=== PATIENT | male | born 1955 | race Caucasian/White ===

== ENCOUNTER 2017-08-21 13:34 | Emergency (ER) | payer BC, OTHER ==
[~2017-08-21] VITALS: Ht 172.7 cm; Wt 73.0 kg
[~2017-08-21 13:34] MED LIST: LISINOPRIL
[2017-08-21 17:23] VITALS: BP 146/92
== END 2017-08-21 17:36 | disposition home or self-care (01) ==
LOC: ER 16:10
DX: G89.29 Other chronic pain (principal); M54.5 Low back pain; I10 Essential (primary) hypertension; E78.00 Pure hypercholesterolemia, unspecified
CPT/HCPCS: 99283

== ENCOUNTER 2018-07-15 14:41 | Emergency (ER) | payer BC ==
[~2018-07-15] VITALS: Ht 165.1 cm; Wt 81.0 kg
[2018-07-15] MEDS ORDERED: IBUPROFEN 600MG TABLET PO ONE (17:15)
[2018-07-15 18:09] VITALS: BP 158/102
== END 2018-07-15 18:11 | disposition home or self-care (01) ==
LOC: ER 14:41
DX: H60.91 Unspecified otitis externa, right ear (principal); E78.00 Pure hypercholesterolemia, unspecified; I10 Essential (primary) hypertension; Z90.49 Acquired absence of other specified parts of digestive tract
CPT/HCPCS: 99283

== ENCOUNTER 2019-05-11 13:13 | Inpatient (IN) | payer SELFPAY ==
[~2019-05-11] VITALS: Ht 172.7 cm; Wt 62.6 kg
[2019-05-11 14:26] LABS: BASOPHILS % 0.5 % (0.0-2.0); EOSINOPHILS % 0.4 % (0.0-5.0); HEMATOCRIT. 43.7 % (42.0-52.0); HEMOGLOBIN. 15.3 g/dL (14.0-18.0); LYMPHOCYTES % 20.9 % (20.0-50.0); MEAN CORPUSCULAR HEMOGLOBIN 34.8 pg (28.0-32.0); MEAN CORPUSCULAR VOLUME 99.7 fL (80.0-94.0); MEAN PLATELET VOLUME 7.5 fl (7.4-10.4); MONOCYTES % 6.9 % (2.0-8.0); NEUTROPHILS % 71.3 % (40.0-76.0); PLATELET 263 x1000/uL (130-400); RED BLOOD CELL COUNT 4.39 mill/uL (4.7-6.1); RED CELL DISTRIBUTION WIDTH 14.2 % (11.6-14.6)
[2019-05-11 14:33] LABS: CHLORIDE 107 mEq/L (98-107)
[2019-05-11] MEDS ORDERED: ONDANSETRON HCL 4MG/2ML INJ IV ONE (15:15)
[2019-05-11] MEDS ORDERED: MORPHINE SULFATE 4 MG/ML CPJ (NOT FOR IM USE) IV ONE (15:15)
[2019-05-11] MEDS ORDERED: ONDANSETRON HCL 4MG/2ML INJ IV PRN (18:45)
[2019-05-11] MEDS ORDERED: CLONIDINE 0.1MG TABLET PO PRN (18:45)
[2019-05-11] MEDS ORDERED: ACETAMINOPHEN 325MG TABLET PO PRN (18:45)
[2019-05-11] MEDS ORDERED: IOHEXOL-350 100 ML BOTTLE ONE (19:44)
[2019-05-11] MEDS ORDERED: ASPIRIN 81MG TABLET PO NR (21:15)
[2019-05-11] MEDS: HYDROCODONE/ACETAMINOPHEN 5/325MG TABLET PO PRN (21:17)
[2019-05-11 21:33] VITALS: BP 185/115
[2019-05-11] MEDS: METOPROLOL TARTRATE 25MG TABLET PO SCH (21:57)
[2019-05-11 22:00] VITALS: BP 185/115
[2019-05-11] MEDS: ZOLPIDEM TARTRATE 5MG TABLET PO PRN (23:20)
[2019-05-12] VITALS: BP 122/82
[2019-05-12] MEDS ORDERED: MORPHINE SULFATE 2 MG/ML CPJ (NOT FOR IM USE) IV PRN (01:00)
[2019-05-12 04:00] VITALS: BP 131/86
[2019-05-12 07:32] VITALS: BP 135/89
[2019-05-12 07:56] LABS: CHLORIDE 105 mEq/L (98-107)
[2019-05-12 07:58] LABS: BASOPHILS % 0.1 % (0.0-2.0); HEMATOCRIT. 43.4 % (42.0-52.0); HEMOGLOBIN. 15.1 g/dL (14.0-18.0); LYMPHOCYTES % 27.9 % (20.0-50.0); MEAN CORPUSCULAR HEMOGLOBIN 34.6 pg (28.0-32.0); MEAN CORPUSCULAR VOLUME 99.7 fL (80.0-94.0); MEAN PLATELET VOLUME 7.7 fl (7.4-10.4); MONOCYTES % 10.4 % (2.0-8.0); NEUTROPHILS % 60.6 % (40.0-76.0); PLATELET 250 x1000/uL (130-400); RED BLOOD CELL COUNT 4.36 mill/uL (4.7-6.1); RED CELL DISTRIBUTION WIDTH 14.5 % (11.6-14.6)
[2019-05-12] MEDS: METOPROLOL TARTRATE 25MG TABLET PO SCH ×2 (08:39→20:44)
[2019-05-12] MEDS: HYDROCODONE/ACETAMINOPHEN 5/325MG TABLET PO PRN ×2 (08:39→14:56)
[2019-05-12] MEDS: ASPIRIN 81MG TABLET PO SCH (08:39)
[2019-05-12 11:48] VITALS: BP 122/80
[2019-05-12] MEDS: MORPHINE SULFATE 2 MG/ML CPJ (NOT FOR IM USE) IV PRN ×3 (11:48→20:44)
[2019-05-12] MEDS: CELECOXIB 200MG CAPSULE PO SCH (16:45)
[2019-05-12 20:00] VITALS: BP 138/85
[2019-05-12] MEDS: FISH OIL/OMEGA-3 FATTY ACIDS 1000MG CAPSULE PO SCH (20:44)
[2019-05-12] MEDS ORDERED: ATORVASTATIN CALCIUM 40MG TABLET PO SCH (21:00)
[2019-05-12] MEDS: ZOLPIDEM TARTRATE 5MG TABLET PO PRN (21:50)
[2019-05-13] VITALS: BP 137/80
[2019-05-13] MEDS: MORPHINE SULFATE 2 MG/ML CPJ (NOT FOR IM USE) IV PRN ×2 (02:40→06:39)
[2019-05-13 04:00] VITALS: BP 124/76
[2019-05-13 08:00] VITALS: BP 143/94
[2019-05-13] MEDS: METOPROLOL TARTRATE 25MG TABLET PO SCH (08:22)
[2019-05-13] MEDS: FISH OIL/OMEGA-3 FATTY ACIDS 1000MG CAPSULE PO SCH (08:22)
[2019-05-13] MEDS: CELECOXIB 200MG CAPSULE PO SCH (08:22)
[2019-05-13] MEDS: ASPIRIN 81MG TABLET PO SCH (08:23)
[2019-05-13] MEDS ORDERED: OMEP20CA5 MT (08:43)
[2019-05-13] MEDS ORDERED: LISI-604 MT (08:43)
[2019-05-13 11:25] VITALS: BP 143/94
== END 2019-05-13 15:15 | disposition home or self-care (01) | DRG 203 ==
LOC: ER 13:13 → EDBEDREQ 14:50 → 7WST 17:04 → EDBEDREQ 17:07 → EDBEDREQTM 19:52 → ENRESERV 20:19
PROVIDERS: ADMIT Internal Medicine; ATTEND Internal Medicine
DX: M94.0 Chondrocostal junction syndrome [Tietze] (principal); E78.5 Hyperlipidemia, unspecified; G47.00 Insomnia, unspecified; I10 Essential (primary) hypertension; Z82.49 Family history of ischemic heart disease and other diseases of the circulatory system; Z79.899 Other long term (current) drug therapy
CPT/HCPCS: 36415; 71045; 71275; 80048; 80061; 83880; 84443; 84484; 93005; 93306; 96374; 96375; 99285; J2270; J2405; Q9967

== ENCOUNTER 2019-07-31 07:54 | Emergency (ER) | payer SELFPAY ==
[~2019-07-31] VITALS: Ht 165.1 cm; Wt 70.0 kg
[~2019-07-31 07:54] MED LIST changes: -LISINOPRIL; +OMEP20CA5 MT
[2019-07-31] MEDS ORDERED: ONDANSETRON HCL 4MG/2ML INJ IV STA (08:20)
[2019-07-31] MEDS ORDERED: MORPHINE SULFATE 4 MG/ML CPJ (NOT FOR IM USE) IV STA (08:20)
[2019-07-31] MEDS ORDERED: SODIUM CHLORIDE 0.9% 1,000 ML IV ONE (08:20)
[2019-07-31 08:56] LABS: CHLORIDE 110 mEq/L (98-107)
[2019-07-31 08:58] LABS: BASOPHILS % 0.4 % (0.0-2.0); EOSINOPHILS % 3.1 % (0.0-5.0); HEMATOCRIT. 44.4 % (42.0-52.0); HEMOGLOBIN. 15.6 g/dL (14.0-18.0); LYMPHOCYTES % 37.1 % (20.0-50.0); MEAN CORPUSCULAR HEMOGLOBIN 34.2 pg (28.0-32.0); MEAN CORPUSCULAR VOLUME 96.8 fL (80.0-94.0); MEAN PLATELET VOLUME 8.2 fl (7.4-10.4); MONOCYTES % 8.3 % (2.0-8.0); NEUTROPHILS % 51.1 % (40.0-76.0); PLATELET 265 x1000/uL (130-400); RED BLOOD CELL COUNT 4.58 mill/uL (4.7-6.1); RED CELL DISTRIBUTION WIDTH 12.9 % (11.6-14.6)
[2019-07-31 08:59] LABS: PROTHROMBIN TIME 10.6 sec (9.6-11.0)
[2019-07-31 09:03] LABS: CLARITY URINE CLEAR (CLEAR); COLOR URINE DARK YELLOW (YELLOW); KETONES URINE TRACE (NEGATIVE); LEUKOCYTE ESTERASE URINE TRACE (NEGATIVE); NITRITE URINE NEGATIVE (NEGATIVE); OCCULT BLOOD URINE NEGATIVE (NEGATIVE); PH URINE 6.5 (4.5-8.0); PROTEIN URINE NEGATIVE (NEGATIVE); SPECIFIC GRAVITY URINE 1.024 (1.005-1.030)
[2019-07-31] MEDS ORDERED: ONDANSETRON HCL 4MG/2ML INJ IV ONE (10:00)
[2019-07-31 11:04] VITALS: BP 148/90
== END 2019-07-31 11:07 | disposition home or self-care (01) ==
LOC: ER 07:54 → CANBEDREQ 14:30
DX: R10.13 Epigastric pain (principal); R11.0 Nausea; R19.7 Diarrhea, unspecified; R50.9 Fever, unspecified; I10 Essential (primary) hypertension
CPT/HCPCS: 36415; 80053; 81003; 83690; 85025; 85610; 96361; 96374; 96375; 96376; 99283; J2270; J2405; J7030

== ENCOUNTER 2019-11-17 07:27 | Emergency (ER) | payer MEDICAID ==
[~2019-11-17] VITALS: Ht 175.3 cm; Wt 71.0 kg
[2019-11-17] MEDS ORDERED: ONDANSETRON HCL 4MG/2ML INJ IV STA (07:57)
[2019-11-17] MEDS ORDERED: SODIUM CHLORIDE 0.9% 1,000 ML IV ONE (07:57)
[2019-11-17] MEDS ORDERED: KETOROLAC 30MG/ML VIAL IV STA (07:57)
[2019-11-17 08:41] LABS: BASOPHILS % 0.3 % (0.0-2.0); EOSINOPHILS % 2.1 % (0.0-5.0); HEMATOCRIT. 46.6 % (42.0-52.0); HEMOGLOBIN. 15.6 g/dL (14.0-18.0); LYMPHOCYTES % 25.9 % (20.0-50.0); MEAN CORPUSCULAR HEMOGLOBIN 33.6 pg (28.0-32.0); MEAN CORPUSCULAR VOLUME 100.5 fL (80.0-94.0); MEAN PLATELET VOLUME 7.9 fl (7.4-10.4); MONOCYTES % 9.1 % (2.0-8.0); NEUTROPHILS % 62.6 % (40.0-76.0); PLATELET 287 x1000/uL (130-400); RED BLOOD CELL COUNT 4.63 mill/uL (4.7-6.1); RED CELL DISTRIBUTION WIDTH 14.6 % (11.6-14.6)
[2019-11-17 08:50] LABS: CHLORIDE 103 mEq/L (98-107)
[2019-11-17 10:54] LABS: CLARITY URINE CLEAR (CLEAR); COLOR URINE YELLOW (YELLOW); KETONES URINE NEGATIVE (NEGATIVE); LEUKOCYTE ESTERASE URINE NEGATIVE (NEGATIVE); NITRITE URINE NEGATIVE (NEGATIVE); OCCULT BLOOD URINE NEGATIVE (NEGATIVE); PH URINE 6.5 (4.5-8.0); PROTEIN URINE NEGATIVE (NEGATIVE); SPECIFIC GRAVITY URINE 1.012 (1.005-1.030); UROBILINOGEN URINE 0.2 E.U./dL (0.2-1.0)
[2019-11-17] MEDS ORDERED: ACETAMINOPHEN WITH CODEINE 300/30MG TABLET PO ONE (12:00)
[2019-11-17 12:11] VITALS: BP 168/95
== END 2019-11-17 11:30 | disposition home or self-care (01) ==
LOC: ER 07:27
DX: G43.909 Migraine, unspecified, not intractable, without status migrainosus (principal); I16.0 Hypertensive urgency; I10 Essential (primary) hypertension; E78.00 Pure hypercholesterolemia, unspecified
CPT/HCPCS: 36415; 70450; 80053; 81003; 85025; 93005; 96374; 96375; 99284; J1885; J2405; J7030

== ENCOUNTER 2022-12-12 10:08 | Inpatient (IN) | payer MEDICARE, MEDICAID ==
[~2022-12-12] VITALS: Ht 165.1 cm; Wt 73.7 kg
[~2022-12-12 10:08] MED LIST changes: +OMEP20CA14 MT; -OMEP20CA5 MT
[2022-12-12] MEDS ORDERED: NITROGLYCERIN OINT 1GM/INCH UDPKT TD ONE (10:30)
[2022-12-12] MEDS ORDERED: HYDRALAZINE 20MG/ML VIAL IV ONE (10:30)
[2022-12-12] MEDS ORDERED: MORPHINE SULFATE 4 MG/ML CPJ (NOT FOR IM USE) IV ONE (10:30)
[2022-12-12] MEDS ORDERED: ATROPINE SULFATE 1MG/ML VIAL IV ONE (11:00)
[2022-12-12 11:19] LABS: BASOPHILS % 0.2 % (0.0-2.0); EOSINOPHILS % 1.2 % (0.0-5.0); HEMATOCRIT. 45.2 % (42.0-52.0); HEMOGLOBIN. 15.5 g/dL (14.0-18.0); LYMPHOCYTES % 28.8 % (20.0-50.0); MEAN CORPUSCULAR HEMOGLOBIN 32.6 pg (28.0-32.0); MEAN CORPUSCULAR VOLUME 95.3 fL (80.0-94.0); MEAN PLATELET VOLUME 7.8 fl (7.4-10.4); MONOCYTES % 8.5 % (2.0-8.0); NEUTROPHILS % 61.3 % (40.0-76.0); PLATELET 226 x1000/uL (130-400); RED BLOOD CELL COUNT 4.74 mill/uL (4.7-6.1); RED CELL DISTRIBUTION WIDTH 14.9 % (11.6-14.6)
[2022-12-12 11:28] LABS: CHLORIDE 104 mEq/L (98-107)
[2022-12-12] MEDS ORDERED: IOHEXOL-350 100 ML BOTTLE ONE ×2 (12:18→12:20)
[2022-12-12] MEDS ORDERED: MORPHINE SULFATE 4 MG/ML CPJ (NOT FOR IM USE) IV SCH (12:30)
[2022-12-12] MEDS: NITROGLYCERIN 0.4MG TABLET SL SL PRN ×2 (17:10→18:49)
[2022-12-12 18:00] VITALS: BP 166/88
[2022-12-12 18:20] VITALS: BP 166/88
[2022-12-12 20:00] VITALS: BP 140/76
[2022-12-12] MEDS: MORPHINE SULFATE 2 MG/ML CPJ (NOT FOR IM USE) IV PRN (22:11)
[2022-12-12] MEDS ORDERED: ZOLPIDEM TARTRATE 5MG TABLET PO PRN (22:15)
[2022-12-12] MEDS ORDERED: NALOXONE HCL 0.4MG/ML VIAL IV PRN (22:15)
[2022-12-12] MEDS: ZOLPIDEM TARTRATE 5MG TABLET PO PRN (23:00)
[2022-12-13] VITALS (7 sets, daily range): BP systolic 134–167; BP diastolic 68–105
[2022-12-13 02:35] LABS: *AMPHETAMINES SCREEN URINE NEGATIVE (NEGATIVE); *BARBITURATES SCREEN URINE NEGATIVE (NEGATIVE); *BENZODIAZEPINES SCREEN URINE NEGATIVE (NEGATIVE); *COCAINE SCREEN URINE NEGATIVE (NEGATIVE); CANNABINOID URINE SCREEN NEGATIVE (NEGATIVE); METHADONE URINE SCREEN NEGATIVE (NEGATIVE); OPIATES URINE SCREEN PRESUMTIVE POSITIVE (NEGATIVE); PHENCYCLIDINE URINE SCREEN NEGATIVE (NEGATIVE)
[2022-12-13] MEDS: MORPHINE SULFATE 2 MG/ML CPJ (NOT FOR IM USE) IV PRN ×4 (06:34→22:33)
[2022-12-13 06:51] LABS: BASOPHILS % 0.2 % (0.0-2.0); EOSINOPHILS % 1.4 % (0.0-5.0); HEMATOCRIT. 43.9 % (42.0-52.0); HEMOGLOBIN. 15.4 g/dL (14.0-18.0); LYMPHOCYTES % 33.4 % (20.0-50.0); MEAN CORPUSCULAR HEMOGLOBIN 32.7 pg (28.0-32.0); MEAN CORPUSCULAR VOLUME 93.3 fL (80.0-94.0); MEAN PLATELET VOLUME 8.2 fl (7.4-10.4); MONOCYTES % 10.7 % (2.0-8.0); NEUTROPHILS % 54.3 % (40.0-76.0); PLATELET 222 x1000/uL (130-400); RED BLOOD CELL COUNT 4.71 mill/uL (4.7-6.1); RED CELL DISTRIBUTION WIDTH 14.7 % (11.6-14.6)
[2022-12-13 07:08] LABS: CHLORIDE 107 mEq/L (98-107)
[2022-12-13 07:15] LABS: HDL CHOLESTEROL 37 mg/dL (40-59); LDL CHOLESTEROL 97 mg/dL (5-100)
[2022-12-13 07:24] LABS: CREATINE KINASE MB FRACTION 2.2 ng/mL (0.5-3.6)
[2022-12-13] MEDS: ENOXAPARIN 40MG/0.4ML SYR SUBCUT SCH (08:32)
[2022-12-13] MEDS: ACETAMINOPHEN 325MG TABLET PO PRN (08:32)
[2022-12-13] MEDS ORDERED: AMLODIPINE 10MG TABLET PO SCH ×2 (15:15→22:00)
[2022-12-13] MEDS ORDERED: LOSARTAN POTASSIUM 25 MG TABLET PO SCH (15:30)
[2022-12-13] MEDS: ASPIRIN 81MG TABLET PO SCH (15:42)
[2022-12-13] MEDS: FUROSEMIDE 40MG/4ML VIAL IVP SCH (15:42)
[2022-12-13] MEDS: PREDNISONE 20MG TABLET PO SCH (15:43)
[2022-12-13] MEDS ORDERED: POTASSIUM CHLORIDE INJ 40 MEQ in DEXT 5% WATER 250 ML IV ONE (17:00)
[2022-12-13] MEDS: HYDRALAZINE 20MG/ML VIAL IV PRN ×2 (17:03→22:32)
[2022-12-13 17:08] LABS: CREATINE KINASE MB FRACTION 4.3 ng/mL (0.5-3.6)
[2022-12-13] MEDS ORDERED: POTASSIUM CHLORIDE 20MEQ TABLET SR PO NR (18:30)
[2022-12-13] MEDS: AMOXICILLIN/POTASSIUM CLAVULANATE 875/125MG TAB PO SCH (20:47)
[2022-12-13] MEDS: FLUTICASONE PROPIONATE 50MCG/SPRAY BOTTLE BOTHNSTRLS SCH (20:47)
[2022-12-13] MEDS ORDERED: ATORVASTATIN CALCIUM 40MG TABLET PO SCH (21:00)
[2022-12-13] MEDS: ZOLPIDEM TARTRATE 5MG TABLET PO PRN (22:31)
[2022-12-14] VITALS: BP 100/47
[2022-12-14] MEDS ORDERED: ONDANSETRON HCL 4MG/2ML INJ IV PRN (00:45)
[2022-12-14 04:00] VITALS: BP 116/66
[2022-12-14] MEDS: MORPHINE SULFATE 2 MG/ML CPJ (NOT FOR IM USE) IV PRN ×3 (05:28→16:12)
[2022-12-14 07:24] LABS: BASOPHILS % 0.2 % (0.0-2.0); EOSINOPHILS % 0.3 % (0.0-5.0); HEMATOCRIT. 47.7 % (42.0-52.0); HEMOGLOBIN. 16.8 g/dL (14.0-18.0); LYMPHOCYTES % 13.9 % (20.0-50.0); MEAN CORPUSCULAR HEMOGLOBIN 32.7 pg (28.0-32.0); MEAN CORPUSCULAR VOLUME 92.7 fL (80.0-94.0); MEAN PLATELET VOLUME 8.2 fl (7.4-10.4); MONOCYTES % 9.5 % (2.0-8.0); NEUTROPHILS % 76.1 % (40.0-76.0); PLATELET 270 x1000/uL (130-400); RED BLOOD CELL COUNT 5.15 mill/uL (4.7-6.1); RED CELL DISTRIBUTION WIDTH 15.4 % (11.6-14.6)
[2022-12-14 07:34] LABS: CHLORIDE 104 mEq/L (98-107)
[2022-12-14] MEDS ORDERED: REGADENOSON 0.4 MG/5 ML IV NR (07:45)
[2022-12-14] MEDS ORDERED: OMEPRAZOLE 20MG CAPSULE EXTENDED RELEASE PO SCH (07:45)
[2022-12-14 08:00] VITALS: BP 123/74
[2022-12-14] MEDS: ENOXAPARIN 40MG/0.4ML SYR SUBCUT SCH (08:18)
[2022-12-14] MEDS: ACETAMINOPHEN 325MG TABLET PO PRN (08:32)
[2022-12-14] MEDS: AMLODIPINE 2.5MG TABLET PO SCH ×2 (08:33→17:00)
[2022-12-14] MEDS: AMOXICILLIN/POTASSIUM CLAVULANATE 875/125MG TAB PO SCH (09:00)
[2022-12-14] MEDS ORDERED: LOSARTAN POTASSIUM 50 MG TABLET PO SCH (09:00)
[2022-12-14] MEDS: FUROSEMIDE 40MG/4ML VIAL IVP SCH (09:00)
[2022-12-14] MEDS: FLUTICASONE PROPIONATE 50MCG/SPRAY BOTTLE BOTHNSTRLS SCH (09:00)
[2022-12-14] MEDS: ASPIRIN 81MG TABLET PO SCH (09:00)
[2022-12-14] MEDS: PREDNISONE 20MG TABLET PO SCH (09:00)
[2022-12-14] MEDS ORDERED: LIP40 PO (10:17)
[2022-12-14] MEDS ORDERED: P20 PO (10:17)
[2022-12-14] MEDS ORDERED: LOSA50TA3 PO (10:17)
[2022-12-14] MEDS ORDERED: AMOX1TAB16 PO (10:17)
[2022-12-14] MEDS ORDERED: ASPI-1160 PO (10:17)
[2022-12-14] MEDS ORDERED: AMLO2.5T45 PO (10:17)
[2022-12-14] MEDS ORDERED: PANTOPRAZOLE SODIUM 40 MG/VIAL IV STA (10:18)
[2022-12-14] MEDS ORDERED: OMEP-265 MT (10:18)
[2022-12-14] MEDS ORDERED: MAGNESIUM/ALUMINUM HYDROXIDE/SIMETHICONE 30ML UDC PO PRN ×2 (10:30)
[2022-12-14] MEDS: ONDANSETRON HCL 4MG/2ML INJ IV PRN ×2 (10:36→16:11)
[2022-12-14 12:00] VITALS: BP 138/87
[2022-12-14 16:00] VITALS: BP 133/87
[2022-12-14 19:24] VITALS: BP 135/71
== END 2022-12-14 20:40 | disposition home or self-care (01) | DRG 392 ==
LOC: ER 10:08 → EDBEDREQ 12:11 → 3WST 13:40 → EDBEDREQ 13:45 → EDBEDREQTM 13:45
PROVIDERS: ADMIT Internal Medicine; ATTEND Internal Medicine
DX: K21.9 Gastro-esophageal reflux disease without esophagitis (principal); E78.00 Pure hypercholesterolemia, unspecified; I16.0 Hypertensive urgency; I45.10 Unspecified right bundle-branch block; J32.8 Other chronic sinusitis; G43.909 Migraine, unspecified, not intractable, without status migrainosus; J01.90 Acute sinusitis, unspecified; Z82.49 Family history of ischemic heart disease and other diseases of the circulatory system; I11.0 Hypertensive heart disease with heart failure; I50.9 Heart failure, unspecified
CPT/HCPCS: 36415; 70486; 71045; 71275; 74174; 76700; 80048; 80053; 80061; 80305; 82550; 82553; 83880; 84484; 85025; 93005; 93306; 93970; 99285; J0360; J0461; J1650; J1940; J2270; J2405; J2785; J3480; J7060; J7512; Q9967

== ENCOUNTER 2023-02-05 22:45 | Emergency (ER) | payer MEDICARE, MEDICAID ==
[~2023-02-05] VITALS: Ht 170.2 cm; Wt 87.0 kg
[~2023-02-05 22:45] MED LIST changes: +AMLO2.5T45 PO; +AMOX1TAB16 PO; +ASPI-1160 PO; +LIP40 PO; +LOSA50TA3 PO; +OMEP-265 MT; +P20 PO
[2023-02-06 00:07] LABS: CHLORIDE 107 mEq/L (98-107)
[2023-02-06 00:08] LABS: BASOPHILS % 0.3 % (0.0-2.0); EOSINOPHILS % 2.8 % (0.0-5.0); HEMATOCRIT. 40.6 % (42.0-52.0); HEMOGLOBIN. 13.8 g/dL (14.0-18.0); LYMPHOCYTES % 38.5 % (20.0-50.0); MEAN CORPUSCULAR HEMOGLOBIN 32.7 pg (28.0-32.0); MEAN CORPUSCULAR VOLUME 96.1 fL (80.0-94.0); MONOCYTES % 11.4 % (2.0-8.0); PLATELET 216 x1000/uL (130-400); RED BLOOD CELL COUNT 4.22 mill/uL (4.7-6.1); RED CELL DISTRIBUTION WIDTH 14.5 % (11.6-14.6)
[2023-02-06 00:15] LABS: ETHANOL BLOOD < 10 mg/dL
[2023-02-06 03:10] VITALS: BP 128/73
[2023-02-06 03:10] LABS: *AMPHETAMINES SCREEN URINE NEGATIVE (NEGATIVE); *BARBITURATES SCREEN URINE NEGATIVE (NEGATIVE); *BENZODIAZEPINES SCREEN URINE NEGATIVE (NEGATIVE); *COCAINE SCREEN URINE NEGATIVE (NEGATIVE); CANNABINOID URINE SCREEN NEGATIVE (NEGATIVE); METHADONE URINE SCREEN NEGATIVE (NEGATIVE); OPIATES URINE SCREEN PRESUMTIVE POSITIVE (NEGATIVE); PHENCYCLIDINE URINE SCREEN NEGATIVE (NEGATIVE)
== END 2023-02-06 03:18 | disposition home or self-care (01) ==
LOC: ER 22:45
DX: R41.82 Altered mental status, unspecified (principal); I10 Essential (primary) hypertension; I45.10 Unspecified right bundle-branch block
CPT/HCPCS: 36415; 71045; 80053; 80305; 80320; 82962; 85025; 93005; 99291; G0480

== ENCOUNTER 2023-02-26 14:15 | Emergency (ER) | payer MEDICARE, MEDICAID ==
[~2023-02-26] VITALS: Ht 172.7 cm; Wt 91.0 kg
[2023-02-26 14:17] VITALS: BP 130/75
[2023-02-26 14:50] LABS: BASOPHILS % 0.2 % (0.0-2.0); HEMATOCRIT. 44.6 % (42.0-52.0); HEMOGLOBIN. 15.4 g/dL (14.0-18.0); LYMPHOCYTES % 10.4 % (20.0-50.0); MEAN CORPUSCULAR HEMOGLOBIN 33.5 pg (28.0-32.0); MEAN CORPUSCULAR VOLUME 97.1 fL (80.0-94.0); MEAN PLATELET VOLUME 7.6 fl (7.4-10.4); NEUTROPHILS % 81.4 % (40.0-76.0); PLATELET 235 x1000/uL (130-400); RED BLOOD CELL COUNT 4.59 mill/uL (4.7-6.1); RED CELL DISTRIBUTION WIDTH 14.8 % (11.6-14.6)
[2023-02-26 14:58] LABS: CHLORIDE 108 mEq/L (98-107)
[2023-02-26] MEDS ORDERED: EPINEPHRINE 1:1000 1 MG/ML AMP IM ONE (15:00)
[2023-02-26 17:16] LABS: CLARITY URINE CLEAR (CLEAR); COLOR URINE DARK YELLOW (YELLOW); KETONES URINE TRACE (NEGATIVE); LEUKOCYTE ESTERASE URINE NEGATIVE (NEGATIVE); NITRITE URINE NEGATIVE (NEGATIVE); OCCULT BLOOD URINE NEGATIVE (NEGATIVE); PROTEIN URINE TRACE (NEGATIVE); SPECIFIC GRAVITY URINE 1.027 (1.005-1.030); UROBILINOGEN URINE 0.2 E.U./dL (0.2-1.0)
[2023-02-26 17:31] LABS: *AMPHETAMINES SCREEN URINE NEGATIVE (NEGATIVE); *BARBITURATES SCREEN URINE NEGATIVE (NEGATIVE); *BENZODIAZEPINES SCREEN URINE NEGATIVE (NEGATIVE); *COCAINE SCREEN URINE NEGATIVE (NEGATIVE); CANNABINOID URINE SCREEN NEGATIVE (NEGATIVE); METHADONE URINE SCREEN NEGATIVE (NEGATIVE); OPIATES URINE SCREEN PRESUMTIVE POSITIVE (NEGATIVE); PHENCYCLIDINE URINE SCREEN NEGATIVE (NEGATIVE)
== END 2023-02-26 20:40 | disposition home or self-care (01) ==
LOC: ER 14:15
DX: F11.10 Opioid abuse, uncomplicated (principal); R07.89 Other chest pain; E78.00 Pure hypercholesterolemia, unspecified; I10 Essential (primary) hypertension; G43.909 Migraine, unspecified, not intractable, without status migrainosus
CPT/HCPCS: 36415; 71045; 80053; 80305; 81003; 83880; 84484; 85025; 93005; 99285; J3490